=== PATIENT | male | born 1985 | race Caucasian/White ===

== ENCOUNTER → 2022-08-15 | Outpatient (CLI) | payer OTHER ==
[~2022-08-15] MED LIST: AMOXICILLIN875 MG PO; CELEXA 20MG20 MG/TAB PO; NAPROSYN500 MG PO; NO HOME MEDICATIONS
== END ==
LOC: COL.VAS 11:58
DX: I51.7 Cardiomegaly (principal)

== ENCOUNTER → 2023-10-21 | Outpatient (CLI) | payer OTHER | LOC: DIA.ED 08:36 | DX: E11.9 Type 2 diabetes mellitus without complications (principal); Z79.84 Long term (current) use of oral hypoglycemic drugs | CPT/HCPCS: G0108 ==

== ENCOUNTER → 2024-03-23 | Outpatient (CLI) | payer OTHER | LOC: DIA.ED 12:01 | DX: E11.9 Type 2 diabetes mellitus without complications (principal); E78.5 Hyperlipidemia, unspecified; Z79.84 Long term (current) use of oral hypoglycemic drugs | CPT/HCPCS: G0108 ==